=== PATIENT | female | born 1955 | race Caucasian/White ===

== ENCOUNTER 2020-05-30 15:00 | Emergency (ER) | payer OTHER, SELFPAY ==
--- NOTE | ~2020-05-30 | XR_ITS ---
EXAMINATION: XR chest 1V portable EXAM DATE: 05/30/2020 15:40 INDICATION: Altered level of consciousness. TECHNIQUE: Portable AP frontal chest x-ray was obtained. Comparison is made to prior examination from 02/06/2014. FINDINGS: The lungs are clear. There are no pleural effusions. The cardiomediastinal silhouette is within normal limits. There is no pneumothorax suspected. The bones and soft tissues are unremarkab le. There are cholecystectomy clips. IMPRESSION: No acute cardiopulmonary findings. Reviewed, dictated and finalized at location B. NESS MACHINES TEACHER
--- NOTE | ~2020-05-30 | CT_ITS ---
EXAMINATION: CT brain wo con EXAM DATE: 05/30/2020 15:11 INDICATION: STAT Stroke Right Side Facial Droop Post Fall Last Night . TECHNIQUE: Spiral CT of the head was performed without contrast. Axial, coronal and sagittal images were reviewed. The dose-length product (DLP) for this examination was 605.33 mGy-cm. The exposure w as tailored according to patient size, and iterative reconstruction (ASIR) was used as additional dos e reduction technique. There is no prior study for comparison. FINDINGS: There are small left occipital lobe regions of decreased attenuation medially, suspicious f or acute infarctions in the left posterior cerebral artery distribution. Possible smaller right occip ital lobe infarctions. There is small old right frontal lobe infarction. Mild cerebral atrophy and mi croangiopathy. No brain mass, acute intracranial hemorrhage, extra-axial collections or obstructive h ydrocephalus. Mild ethmoid mucoperiosteal thickening. IMPRESSION: 1. Several left occipital hypodensities likely acute infarctions. 2. Possible small right occipital lobe acute infarction. 3. Mild atrophy and microangiopathy. 4. No acute hemorrhage. As per stroke protocol, I called these results to emergency room, discussed with Tiarra Nolen MD at 05/30/2020 15:15 MOLDER BENCH Reviewed, dictated and finalized at location B. ER BENCH IMPRESSION: 1. Several left occipital hypodensities likely acute infarctions. 2. Possible small right occipital lobe acute infarction. 3. Mild atrophy and microangiopathy. 4. No acute hemorrhage. As per stroke protocol, I called these results to emergency room, discussed wit h Tiarra Nolen MD at 05/30/2020 15:15 MOLDER BENCH
[2020-05-30 15:19] VITALS: BP 163/82; PULSE 92; RESP 20; TEMP 36.7; O2SAT 100
--- NOTE | 2020-05-30 15:19 | ECG_ITS ---
Measurements Intervals Pierce Rate: 83 P: 80 MT: 165 QRS: 33 QRSD: 86 T: 69 QT: 390 QTc: 460 Interpretive Statements SINUS RHYTHM DELAYED PRECORDIAL R/S TRANSITION MINIMAL Q WAVES- ANTEROLAT/INF LEADS BORDERLINE ECG Electronically Signed On 05-30-2020 16:38:00 SSIS ETL DEVELOPER by Freddy Cardozo D.O.
[2020-05-30 15:35] LABS: Base Excess ABG -0.1 mmol/L (0-2); Carboxyhemoglobin 1.4 % (0-1.5); HCO3 ABG 21.4 mmol/L (23-29); Methemoglobin ABG 0.3 % (0-1.5); Oxygen Content ABG 20.1 %vol (16.0-22.0); Oxygen Saturation ABG 99.2 % (95-97); Oxyhemoglobin 97.5 % (94-100); PCO2 ABG 26.9 mmHg (35-45); Reduced Hemoglobin 0.8 % (0-1.5); Total Hemoglobin 14.4 g/dL; pH ABG 7.52 (7.35-7.45)
[2020-05-30 15:36] LABS: Basophils Absolute Auto 0.04 K/mm3 (0.00-0.10); Basophils Percent Auto 0.3 % (0.0-1.0); Eosinophils Absolute Auto 0.09 K/mm3 (0.02-0.50); Eosinophils Percent Auto 0.7 % (1.0-6.0); Hematocrit 40.4 % (35.0-49.0); Hemoglobin 13.3 g/dL (12.0-15.0); Immature Granulocyte Absolute 0.04 K/mm3 (0.00-0.00); Immature Granulocyte Percent A 0.3 % (0.0-0.0); Lymphocytes Percent Auto 12.9 % (18.0-42.0); Mean Corpuscular HGB Conc 32.9 g/dL (32.0-36.0); Mean Corpuscular Hemoglobin 29.7 pg (27.0-31.0); Mean Corpuscular Volume 90.2 fL (78.0-102.0); Monocytes Absolute Auto 0.65 K/mm3 (0.10-0.90); Monocytes Percent Auto 4.9 % (2.0-11.0); Neutrophils Absolute Auto 10.6 K/mm3 (1.7-7.2); Neutrophils Percent Auto 80.9 % (50.0-70.0); Platelet Count Result 319 K/mm3 (150-420); Red Blood Count 4.48 M/mm3 (4.20-5.40); Red Cell Distribution Width 13.2 % (11.6-14.4); White Blood Count 13.2 K/mm3 (4.8-10.8)
[2020-05-30 15:37] LABS: Modified Allen's Test Pass; Site Drawn RIGHT RADIAL
[2020-05-30 15:38] LABS: Device ROOM AIR
--- NOTE | 2020-05-30 15:44 | ED.AMS ---
HPI - Altered Mental Status General Chief Complaint: Head Injury Stated Complaint: AMB Source: patient and EMS Mode of arrival: EMS Limitations: altered mental status History of Present Illness HPI narrative: pt reportidly fell down yesterday. today not acting right. pt answering questions, but she is disoriented. states that about 3 am she was moving all over the bed and that is unusual for her. She hasnt been normal since yesterday. complaint: altered mental status Onset (ago): unknown Timing confirmed by: spouse Severity: moderate Context: trauma Associated symptoms: denies other symptoms Related Data Allergies Allergy/AdvReac Type Severity Reaction Status Date / Time cephalexin Allergy Unknown Unknown Verified 05/30/20 17:12 codeine Allergy Unknown NAUSEA Verified 05/30/20 17:12 Review of Systems Review of Systems: Narrative: unreliable due to mental status ROS unobtainable: Yes unobtainable due to medical condition and unobtainable due to mental status PMFSH Family History Family History Sibling Family history of gallbladder disease Father Family history of malignant neoplasm of kidney Patient's father is Other Family history of cardiovascular disease Social History Social History Smoking status: Never smoker Alcohol intake: current Gender identity (if verbalized by the patient): Female Exam Const: General: alert and confusion Nutritional Appearance: thin Limitations: altered mental status HENMT: Head: normal to inspection Other: facial assymetry, however, pt is able to smile and move some of facial muscles Eyes: Conjunctivae: conjunctivae normal Pupils: Equal, round and reactive pupils present Chest: Chest palpation & inspection: normal inspection of the chest Resp: Effort & Inspection: normal respiratory effort Auscultation: clear to auscultation bilaterally Cardio: Rate: regular rate Rhythm: regular rhythm GI: Inspection: non-distended GI Palp: Yes Soft to palpation, No Tenderness to palpation present (GI) and No Guarding due to palpation present (GI) Auscultation: normal bowel sounds : General: Yes no CVA tenderness Back/Spine/Pelvis: Back: no CVA tenderness Skin: General skin exam: normal color Rashes: no rashes Neuro: General: moves all extremities Speech: normal speech and No Abnormal speech present Extrem: General: normal to inspection and edema Psych: Appearance: well kempt Other: unable to answer questions completely- will follow commands, but often answers questions with I dont know. She is confused on details- answers what year is it with 1997 Course Course Emergency Course: mikey notified 1511 Neurology 16:22 Dr Camacho accepted recalled mikey to notify of neurologist acceptance, they will page hospitalist D/w Lani- will accept under Dr. Quinn Vital Signs Vital signs: Vital Signs Temperature 36.7 C 05/30/20 15:19 Pulse Rate 92 05/30/20 15:19 Respiratory Rate 20 05/30/20 15:19 Blood Pressure 163/82 H 05/30/20 15:19 Pulse Oximetry 100 05/30/20 15:19 Temperature 36.7 C 05/30/20 15:19 Pulse Rate 92 05/30/20 15:19 Respiratory Rate 20 05/30/20 15:19 Blood Pressure 163/82 H 05/30/20 15:19 Pulse Oximetry 100 05/30/20 15:19 MDM - Altered Mental Status Lab Data Result diagrams: 05/30/20 15:31 05/30/20 15:31 Labs: Lab Results 05/30/20 05/30/20 05/30/20 Range/Units 15:31 15:31 15:31 WBC 13.2 H (4.8-10.8) K/mm3 RBC 4.48 (4.20-5.40) M/mm3 Hgb 13.3 (12.0-15.0) g/dL Hct 40.4 (35.0-49.0) % MCV 90.2 (78.0-102.0) fL MCH 29.7 (27.0-31.0) pg MCHC 32.9 (32.0-36.0) g/dL RDW 13.2 (11.6-14.4) % Plt Count 319 (150-420) K/mm3 MPV 9.0 L (9.2-11.8) fl Immature Gran % (Auto) 0.3 H (0.0-0.0)
[2020-05-30 15:52] LABS: Partial Thromboplastin Time 23.9 SEC (23.90-30.70); Prothrombin Time 10.9 Seconds (9.50-12.10)
[2020-05-30 15:54] LABS: Add Urine Microscopic? YES; Appearance Urine Clear (Clear); Bilirubin Urine Negative (Negative); Blood Urine Negative (Negative); Color Urine Yellow (Yellow); Glucose Urine UA Negative (Negative); Ketones Urine Trace (Negative); Leukocyte Esterase Ur Negative LEU/UL (Negative); Nitrate Urine Negative (Negative); Protein Urine Negative (Negative); Specific Grav Ur 1.025 (1.010-1.020); Urobilinogen Urine 0.2 mg/dL (0.2-1.0); pH Urine 6.5 (5.0-8.0)
[2020-05-30 15:55] LABS: Alanine Aminotransferase 29 U/L (14-59); Albumin Level 3.9 g/dL (3.4-5.0); Alkaline Phosphatase 104 U/L (46-116); Anion Gap 13 mmol/L (8-16); Aspartate Amino Transferase 12 U/L (15-37); Bilirubin,Total 0.5 mg/dL (0.00-1.00); Blood Urea Nitrogen 16 mg/dL (7-18); Carbon Dioxide 21 mmol/L (21-32); Chloride 104 mmol/L (98-108); Estimated CRCL calculation 41 ml/min; Estimated Glomerular Filt Rate > 60; Glucose 126 mg/dL (70-99); Osmolality Calculated 289 mOsm/kg (285-295); Potassium 3.7 mmol/L (3.5-5.1); Sodium 138 mmol/L (136-145); Total Protein 7.4 g/dL (6.4-8.2); Troponin I 5.7 ng/L (0.00-60.4)
[2020-05-30 16:00] VITALS: BP 138/95; PULSE 88; RESP 20; O2SAT 98
[2020-05-30 16:00] LABS: Bacteria Urine Trace /hpf; RBC Urine 0-2 /hpf (0-2); Squamous Epithelial Cell Urine Rare /hpf (Few); WBC Urine 0-3 /hpf (0-3)
[2020-05-30] MEDS: NALOXONE HCL INJ 2 MG/2 ML AMP (16:03)
[2020-05-30] MEDS: SODIUM CHLORIDE 0.9% IV 1,000 ML 999 ML IV CONT (16:13)
[2020-05-30] MEDS: ONDANSETRON INJ 4 MG/2 ML VIAL IV PUSH (16:13)
[2020-05-30] MEDS: levETIRAcetam 1000MG/NACL100ML 1,000 MG/100 ML BAG 400 MG IVPB (16:15)
[2020-05-30] MEDS: MORPHINE SULFATE (*CRX) 2 MG/ML INJ IV PUSH (16:44)
[2020-05-30 17:00] VITALS: BP 155/121; PULSE 101; RESP 20; O2SAT 98
[2020-05-30 17:30] VITALS: BP 134/88; PULSE 85; RESP 20; O2SAT 98
--- NOTE | 2020-05-30 17:55 | PC.NURSE ---
1512 [facility] CALLED TO SPEAK WITH NEUROLOGIST LEFT MESSAGE HOUSE SUP WAS BUSY 1520 CALLED TO MAKE SURE SHE GOT THE MESSAGE 1559 CALLED AGAIN AND NEURO HAD BEEN REACHED AND WAS CALLING BACK 1618 DR ALANIS NEURO CALLED AND SPOKE WITH DR CELESTIN 1650 HOSPITALIST CALLED AND SPOKE WITH DOCTOR 1710 REPORT GIVEN TO NURSE ALVES AT [facility] 1712 [facility] CALLED FOR TRANSFER 1730 PT LEFT FOR [facility]OM 304
== END 2020-05-30 17:30 | disposition short-term general hospital (02) ==
PROVIDERS: Emergency Provider Emergency Medicine
DX: I63.9 Cerebral infarction, unspecified (principal)
CPT/HCPCS: 36415; 36600; 70450; 71045; 80053; 81001; 82375; 82805; 83050; 84484; 85025; 85610; 85730; 93005; 96361; 96365; 96375; 99285; J1953; J2270; J2310; J2405; J7030

== ENCOUNTER 2020-05-30 20:08 | Inpatient (IN) | payer OTHER, SELFPAY ==
--- NOTE | ~2020-05-30 | MR_ITS ---
EXAMINATION: MR brain/brain stem wo con DATE: 06/02/2020 12:32 INDICATION: Acute cerebrovascular accident. Altered mental status. TECHNIQUE: Magnetic resonance imaging (MRI) of the brain and brainstem was performed without intraven ous contrast. Sequences included sagittal and axial T1-weighted FSE, axial diffusion-weighted FS EPI, axial T2*-weighted GRE, axial T2-weighted FLAIR Propeller, and axial T2-weighted Propeller. Apparent diffusion coefficient (ADC) maps were created. COMPARISON: Head CT 06/02/2020 FINDINGS: There are scattered acute infarcts in the bilateral cerebellum, occipital lobes, parietal l obes, frontal lobes, right temporal lobe, bilateral thalami, and right basal ganglia. There is no int racranial hemorrhage or abnormal mass lesion. There is an old infarct in right frontoparietal region. There are scattered areas of nonspecific increased T2-weighted signal intensity in the cerebral whit e matter and evelyn. The ventricles are normal in size. There is mild mucosal thickening in the ethmoid sinuses. The mastoid air cells are normal. IMPRESSION: 1. Scattered acute infarcts throughout the brain. 2. Old infarct in right frontoparietal region. 3. Mild nonspecific cerebral white matter disease and pontine disease, which likely represents chroni c small vessel ischemic disease. Reviewed, dictated and finalized at location A. SAW MARKER IMPRESSION: 1. Scattered acute infarcts throughout the brain. 2. Old infarct in right frontoparietal region. 3. Mild nonspecific cerebral white matter disease and pontine disease, which lucy das represents chronic small vessel ischemic disease.
--- NOTE | ~2020-05-30 | CT_ITS ---
EXAMINATION: CTA brain carotid EXAM DATE: 06/02/2020 12:19 INDICATION: Encephalopathy, acute stroke. Altered mental status. TECHNIQUE: Noncontrast head CT. Spiral CTA of the carotid arteries was performed with intravenous i njection 100 cc of Omnipaque 350. Axial, coronal, sagittal reformatted images reviewed. Additional r eformatted images created on dedicated 3-D workstation. NASCET comparable standard used to assess th e degree of arterial stenosis. Spiral CT angiogram cerebral arteries performed with the same intrave nous injection of contrast. Source images of the brain CTA transferred to dedicated workstation for 3 -D rotational image creation. Coronal, sagittal maximum intensity pixel images also reviewed. The d ose-length product (DLP) for this examination was 1581.31 mGy-cm. The exposure was tailored accordi ng to patient size, and iterative reconstruction (ASIR) was used as additional dose reduction techniq ue. Comparison is made to prior examination from head CT 05/30/2020. FINDINGS: Small to moderate sized acute to subacute infarctions in the left occipital lobe, and small acute infarction in the right occipital lobe. These were identified on head CT from 05/30/2020, have d ecreased attenuation, expected evolution. Small bilateral thalamic lacunar infarctions not identified on prior study, may be same age as occipital infarctions and just better visualized after a few days . Small old right frontal lobe infarction. There is a bandlike short segment intraluminal density within the left subclavian artery for about 2 cm in length just below the left vertebral artery takeoff, appearance is suspicious for short segment dissection. This has been indicated on axial image 66. Moderate to large amount of noncalcified plaque at the right carotid bulb, with 45 % stenosis. On the left only small amount of plaque, 0% stenosis. The left vertebral artery is slightly larger than the right. There is symmetric cerebral artery arborization, no truncated vessels identified. No venous s inus thrombosis. No aneurysms. Heterogeneously enhancing right thyroid lobe nodule at 3.5 cm, large enough to recommend biopsy. IMPRESSION: 1. 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 No extension into the vertebral artery but potentially some plaque or thrombus from this could have caused the scattered posterior circulation infarcts described above. 2. Expected evolution of previously seen occipital lobe infarctions, and development of thalamic lac unar infarctions. 3. Old small right frontal lobe infarction. 4. Right carotid bulb 45% stenosis, left carotid bulb 0% stenosis. I discussed suspected dissection, infarctions with Dr. Quinn at 06/02/2020 12:49 SENIOR TELLER. Reviewed, dictated and finalized at location B. OR TELLER IMPRESSION: 1. 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 No extension into the vertebral artery but potentia lly some plaque or thrombus from this could have caused the scattered posterior circulation infarcts described above. 2. Expected evolution of previously seen occipital lobe infarctions, and devel opment of thalamic lacunar infarctions. 3. Old small right frontal lobe infarction. 4. Right carotid bulb 45% stenosis, left carotid bulb 0% stenosis. I discussed suspected dissection, infarctions with Dr. Quinn at 06/02/2020 12: 49 SENIOR TELLER.
--- NOTE | 2020-05-30 18:13 | ADMGEN ---
This patient, Rosie Contreras, was admitted to 3 [facility] Surg Room 304-01. Patient/family oriented to hospital policies and general routines including ID bracelet, bed and alarms, visiting hours, pain management, procedures, bathroom and other care routines, personal items, smoking policy, room service/diet, and visiting hours. Information on how to activate the Rapid Response Team has been discussed. Patient/Family are encouraged to report perceived risks to care and to ask questions if they do not understand what they are told or what they should do.
[2020-05-30 18:24] VITALS: BP 137/63; PULSE 82; RESP 18; TEMP 36.9; O2SAT 100
[2020-05-30 18:34] VITALS: BMI 21.6
--- NOTE | 2020-05-30 20:30 | PM.IMHP ---
H&P: HPI History of Present Illness Date/Time: 05/30/20 20:00 Chief Complaint: Cerebrovascular accident. Narrative: This is a 65-year-old female with hypertension, hyperlipidemia, and depression with anxiety who is being directly admitted to the hospitalist service from the emergency department at [facility] for further evaluation of a cerebrovascular accident. At the time my evaluation the patient is confused and it sounds like that was the reason that she was originally seen at the outside facility. Unfortunately she is not able to provide me with an accurate medical history and I have not been able to get a hold of her or son for any further information. As such all of the following is obtained via a review of her electronic medical records. Reportedly the patient had a fall yesterday though was apparently normal thereafter however this morning she was just not acting right. On arrival to the outside hospital she was answering questions but was disoriented. Her was present at that time and he noted that she started to stir around in bed around 03:00 and seemed restless. Aside from a mild leukocytosis her labs were unremarkable. Brain CT did demonstrate several left occipital hypodensities which are likely acute infarctions, a possible small right occipital lobe acute infarction, and mild atrophy and microangiopathy. Dr. Gillespie (neurology) was called and he accepted the patient in consult with request to obtain an MRI in the morning. At the time my evaluation the patient is alert and will open her eyes to name however does not really follow any commands. She did not answer any of my questions and was constantly moving around in bed. Review of Systems Review of Systems: Narrative: Unable to be obtained given her current clinical condition as detailed above. [facility] Past Medical History Medical History (Updated 05/30/20 @ 23:42 by Lani Zeng PA-C) Depression with anxiety Frequent headaches Gastroesophageal reflux disease History of kidney stones Hyperlipidemia Not currently on medication. Hypertension Not currently on medication. Surgical History Surgical History (Updated 05/30/20 @ 23:36 by Lani Zeng PA-C) History of arthroscopy of left knee History of bunionectomy History of cholecystectomy History of dilation and curettage History of tubal ligation Family History Family History Sibling Family history of gallbladder disease Father Family history of malignant neoplasm of kidney Patient's father is Other Family history of cardiovascular disease Social History Social History (Updated 05/30/20 @ 23:37 by Lani Zeng PA-C) Social History: Surrogate decision maker: Kevin () and Jovan (son) Ben. Code status: Full code. Smoking status: Never smoker Second hand tobacco smoke exposure: No Alcohol intake: current Substance use: never Additional living arrangements comments: The patient lives in [place] with her family. Additional occupation/education comments: [employer] with [employer]. Gender identity (if verbalized by the patient): Female Sexual Orientation (if Verbalized by the Patient): Straight or Heterosexual Spiritual care concerns: No Meds Home Medications and Allergies Home Medications Medication Instructions Recorded Confirmed Type vilazodone 40 mg tablet 40 mg PO DAILY #30 tablet 11/15/19 05/30/20 Rx Allergies Allergy/AdvReac Type Severity Reaction Status Date / Time cephalexin Allergy Unknown Unknown Verified 05/30/20 18:43 codeine Allergy Unknown NAUSEA Verified 05/30/20 18:43 Vital Signs Vital Signs - 24 hr 05/30/20 18:24 05/30/20 21:31 Temperature 98.5 F 97.8 F Pulse Rate 82 68 Respiratory Rate 18 18 Blood Pressure 137/63 138/69 Pulse Oximetry 100 100 Exam Narrative: Lillian
[2020-05-30] MEDS: LORazepam INJ (*CRX) 2 MG/ML VIAL 0.5 MG IV PUSH (21:02)
[2020-05-30 21:31] VITALS: BP 138/69; PULSE 68; RESP 18; TEMP 36.6; O2SAT 100
[2020-05-31] VITALS: PULSE 91
--- NOTE | 2020-05-31 | ECHO_ITS ---
Patient Info Name: Rosie Contreras Age: 65 years : 1955 Gender: Female Ht: 60 in Wt: 138 lbs BSA: 1.65 m2 HR: 80 bpm BP: 138 / 69 mmHg Heart Rhythm: Sinus Rhythm Technical Quality: Good Exam Date: 05/31/2020 9:59 AM Exam Location: [facility] Pulmonary Exam Room: 304 Patient Status: Inpatient Admit Date: 05/31/2020 Staff Ordering Physician: Lani Zeng PA-C Shank Tapper: Brigitte Carbajla RDCS Attending Provider: Mitzi Quinn MD Referring Physician: Karri ALEXANDRE; Exam Type: CA echo doppler w bubble study Study Info Indications - CVA Complete two-dimensional, color flow and Doppler transthoracic echocardiogram is performed with agitated saline. Contrast/Agitated Saline Contrast/Ag. Saline: Agitated Saline Amount: 10.00 ml Administered By: Robert Martinez RN Existing IV Access: Yes IV Access Condition: patent with no signs of infiltration Summary 1. Left ventricular chamber dimension is normal. 2. Left ventricular systolic function is hyperdynamic, estimated at >70%. 3. There is mildly increased left ventricular wall thickness. 4. Left ventricular septal wall motion is normal. 5. The left ventricular diastolic function is grade I diastolic dysfunction. 6. Intact interatrial septum visualized by agitated saline imaging. 7. There is mild tricuspid valve regurgitation. Left Ventricle Left ventricular chamber dimension is normal. Left ventricular systolic function is hyperdynamic, estimated at >70%. There is mildly increased left ventricular wall thickness. Left ventricular septal wall motion is normal. The left ventricular diastolic function is grade I diastolic dysfunction. Right Ventricle Right ventricular chamber dimension is normal. Right ventricular systolic function is normal. Left Atria Left atrial chamber dimension is normal. Right Atria Right atrial chamber dimension is normal. Atrial Septum Intact interatrial septum visualized by agitated saline imaging. Aortic Valve The aortic valve is trileaflet. There is mild aortic valve sclerosis. There is no aortic valve stenosis. There is trace aortic valve regurgitation. Pulmonic Valve The pulmonic valve is normal. There is no pulmonic valve stenosis. Mitral Valve The mitral valve has normal leaflets. There is no mitral valve stenosis. There is trace mitral valve regurgitation. Tricuspid Valve The tricuspid valve leaflets are normal. There is no significant tricuspid valve stenosis. There is mild tricuspid valve regurgitation. No pulmonary hypertension, estimated pulmonary arterial systolic pressure is 33 mmHg. Pericardium/Pleural The pericardium appears normal. There is no pericardial effusion. Inferior Vena Cava Normal inferior vena cava with >50% collapse upon inspiration consistent with normal right atrial pressure, 5 mmHg. Aorta The aortic root size at the sinus of Valsalva is normal. The prox ascending aorta size is normal. Left Ventricular Outflow Tract Name Value Normal LVOT 2D LVOT Diameter 2.0 cm LVOT Doppler
[2020-05-31 03:01] LABS: Amphetamine Screen Urine Negative (Negative); Barbiturate Screen Urine Negative (Negative); Benzodiazepines Screen Urine Negative (Negative); Cannabinoid Screen Urine Positive (Negative); Cocaine Screen Urine Negative (Negative); Methadone Screen Urine Negative (Negative); Opiate Screen Urine Positive (Negative); Phencyclidine Screen Urine Negative (Negative)
[2020-05-31 04:00] VITALS: PULSE 80
[2020-05-31 05:23] LABS: Hematocrit 38.2 % (37.0-47.0); Hemoglobin 12.7 g/dL (12.0-15.0); Mean Corpuscular HGB Conc 33.2 g/dl (32-36); Mean Corpuscular Hemoglobin 30.3 pg (26-34); Mean Corpuscular Volume 91.2 fl (80-100); Mean Platelet Volume 9.1 fl (7.4-10.4); Platelet Count Result 300 k/mm3 (150-375); Red Blood Count 4.19 M/mm3 (4.2-5.4); Red Cell Distribution Width 13.5 % (11.5-14.5); White Blood Count 11.7 K/mm3 (4.5-10.0)
[2020-05-31 05:42] LABS: Ammonia 17 umol/L (9-30)
[2020-05-31 05:44] LABS: Alanine Aminotransferase 16 U/L (4-35); Albumin Level 4.1 g/dL (3.5-5.1); Alkaline Phosphatase 89 U/L (38-126); Anion Gap 8 mmol/L (8-16); Aspartate Amino Transferase 21 U/L (14-36); Bilirubin,Total 0.6 mg/dL (0.2-1.3); Blood Urea Nitrogen 12 mg/dL (7-17); Calcium 9.5 mg/dL (8.4-10.2); Carbon Dioxide 23 mmol/L (22-30); Chloride 111 mmol/L (98-107); Cholesterol 250 mg/dL (0-200); Estimated CRCL calculation 44 ml/min; Estimated Glomerular Filt Rate > 60; Glucose 99 mg/dL (65-105); HDL Direct 59 mg/dL; Potassium 3.7 mmol/L (3.4-5.0); Sodium 142 mmol/L (137-145); Triglycerides 162 mg/dL (<150)
[2020-05-31 05:54] LABS: LDL Cholesterol Direct 142 mg/dL
[2020-05-31 08:00] VITALS: PULSE 70
[2020-05-31 12:00] VITALS: PULSE 67
--- NOTE | 2020-05-31 13:51 | PC.NURSE ---
Patient belongings including wallet, home medications, and make up were returned to the .
--- NOTE | 2020-05-31 14:20 | PCOTNOTE ---
Attempted OT evaluation, patient unarousable at this time, unable to complete evaluation. will attempt OT evaluation in AM, RN notified.
--- NOTE | 2020-05-31 14:28 | WPDNEUROPN ---
Progress Note: A&P Assessment and Plan (1) Altered mental status: Code(s): R41.82 - Altered mental status, unspecified Status: Acute (2) Acute cerebrovascular accident: Code(s): I63.9 - Cerebral infarction, unspecified Status: Acute Additional Plan encephalopathy with abnormal CT scan of the head will benefit from the MRI of the brain and EEG Review of Systems Review of Systems: All systems reviewed & are unremarkable except as noted in HPI and below Exam Const: General: healthy appearing, in distress and uncomfortable Nutritional Appearance: average body habitus Orientation/consciousness: oriented to person Limitations: behavioral limitations HENMT: Head: normocephalic Ears: hearing grossly normal bilaterally General nose exam: Normal external nose present and No nasal discharge present Face and sinus: normal facial exam Mouth: Yes Normal oral and palatal mucosa present Eyes: General: appearance normal, both eyes and all related structures Alignment and Position: alignment normal Periorbital: periorbital findings normal Eyelids: eyelids normal Conjunctivae: conjunctivae normal Sclera: sclerae normal Cornea: corneas normal Pupils: Equal, round and reactive pupils present EOM: EOMs intact bilaterally Resp: Effort & Inspection: normal respiratory effort Auscultation: clear to auscultation bilaterally Cardio: Rhythm: regular rhythm GI: Auscultation: normal bowel sounds Neuro: General: moves all extremities Cranial nerves: Yes CN's II-XII intact bilaterally Cognition (Neuro): abnormal cognition Speech: Abnormal speech present Motor exam (neuro): Pronator motor function not present and No tremor noted Sensory Exam: normal sensation Deep tendon reflexes (DTR's): Right triceps reflex intensity grade: 1+, Left triceps reflex intensity grade: 1+, Rt Biceps (C5, C6): 1+, Left biceps reflex intensity grade: 1+, Right brachioradialis reflex intensity grade: 1+, Left brachioradialis reflex intensity grade: 1+, Right patellar reflex intensity grade: 1+, Left patellar reflex intensity grade: 1+, Right ankle reflex intensity grade: 1+ and Left ankle reflex intensity grade: 1+ Plantar Reflex Responses: downgoing: bilateral Objective Data Vital Signs Vital Signs: Vital Signs - 24 hr 05/30/20 18:24 05/30/20 21:31 05/31/20 00:00 Temperature 36.9 C 36.6 C Pulse Rate 82 68 91 Respiratory Rate 18 18 Blood Pressure 137/63 138/69 Pulse Oximetry 100 100 05/31/20 04:00 Temperature Pulse Rate 80 Respiratory Rate Blood Pressure Pulse Oximetry Intake/Output Intake/Output: Intake & Output 05/28/20 05/29/20 05/30/20 05/31/20 23:59 23:59 23:59 23:59 Intake Total 0 Output Total 300 Balance -300 Meds/Results Medications: Active Medications Generic Name Dose Route Start Last Admin Trade Name Chriss PRN Reason Stop Dose Admin Acetaminophen 650 mg 05/30/20 20:08 Acetaminophen 325 Mg Tablet PO Q4H PRN Mild Pain (1-3) or Fever Aspirin 325 mg 05/31/20 13:10 Aspirin 325 Mg Tablet PO DAILY@0800 [facility] Atorvastatin Calcium 20 mg 05/31/20 09:00 Atorvastatin 20 Mg Tablet PO DAILY [facility] Labs Labs: Laboratory Results - last 24 hr 05/31/20 05/31/20 05/31/20 01:52 05:11 05:11 WBC 11.7 H RBC 4.19 L Hgb 12.7 Hct 38.2 MCV 91.2 MCH 30.3 MCHC 33.2 RDW 13.5 Plt Count 300 MPV 9.1 Sodium 142 Potassium 3.7 Chloride 111 H Carbon Dioxide 23 Anion Gap 8 BUN 12 Creatinine 0.80 Estim Creat Clear Calc 44 Estimated GFR > 60 Glucose 99 Calcium 9.5 Total Bilirubin 0.6 AST 21 ALT 16 Alkaline Phosphatase 89 Ammonia Total Protein 7.0 Albumin 4.1 Triglycerides 162 H Cholesterol 250 H LDL Cholesterol Direct 142 HDL Direct 59 Vitamin B12 535.0 TSH (Reflex) Urine Opiates Screen Positive A Urine Methadone Screen Negative Ur Barbit
--- NOTE | 2020-05-31 14:36 | PM.IMPN ---
Progress Note: A&P Assessment and Plan (1) Acute cerebrovascular accident: Code(s): I63.9 - Cerebral infarction, unspecified Status: Acute Assessment and Plan: CT brain from [facility] shows several left occipital hypodensities likely acute infarctions, possible small right occipital lobe acute infarction without acute hemorrhage. Patient transferred here for neurology consult. Appreciate further recommendations from neurology. Started full-dose aspirin and statin therapy however patient is not able to cooperate to take oral medications today. (2) Altered mental status: Code(s): R41.82 - Altered mental status, unspecified Status: Acute Assessment and Plan: Suspect may be related to above. Per nursing, patient received Narcan at outside facility. UDS positive for opioids and cannabis. Ammonia within normal limits. UA grossly unremarkable. Chest XR is clear. Afebrile. At times she is sleeping and difficult to wake, at other times today she is quite alert, forming few-word phrases with clear speech and restless/trying to get out of bed/agitated. (3) Hypertension: Code(s): I10 - Essential (primary) hypertension Status: Chronic Assessment and Plan: History of HTN is documented. Not on home medications. at bedside unsure what medications she takes although I see bystolic prescribed by PCP 12/2019 in external med rec. BPs elevated on arrival but we will allow for permissive hypertension. BPs stable today, will monitor closely. (4) Hyperlipidemia: Code(s): E78.5 - Hyperlipidemia, unspecified Status: Chronic Assessment and Plan: Start atorvastatin if she will take. Total chol 250 with elevated triglycerides. Subjective Date/time seen: 05/31/20 1315 Interval history: Ms. Contreras is a 65yo F admitted for altered mental status and acute CVA. Patient will not wake for my encounter however has been intermittently awake, fidgeting, restless in bed, getting agitated with staff per nursing. Review of systems is unobtainable. Review of Systems Review of Systems: ROS unobtainable: Yes unobtainable due to mental status Exam Narrative: Exam Narrative: General: Female resting asleep in bed on her left side, not able to arouse or wake her on my encounter however before and after my encounter she will wake for other staff and intermittently become agitated. HEENT: Pupils sluggishly reactive. Sclerae anicteric. Oral mucosa appears moist however she would not open her mouth for exam. Neck: Supple Respiratory: Lung sounds are diminished due to poor effort. Respirations even and nonlabored, tolerating room air. Cardiovascular: Regular rate and rhythm. Gastrointestinal: Abdomen is soft, nontender, and nondistended with positive bowel sounds. Skin: Warm and dry. No rash or lesions on limited exam. Extremities: No cyanosis, clubbing, or edema. Radial and pedal pulses intact. Neurological: Sleeping. Unable to assess orientation as she will not answer my questions however she is answering some questions appropriately for nursing. She did not participate in the rest of the neurologic exam. Objective Data Vital Signs Vital Signs: Vital Signs - 24 hr 05/30/20 18:24 05/30/20 21:31 05/31/20 00:00 Temperature 98.5 F 97.8 F Pulse Rate 82 68 91 Respiratory Rate 18 18 Blood Pressure 137/63 138/69 Pulse Oximetry 100 100 05/31/20 04:00 Temperature Pulse Rate 80 Respiratory Rate Blood Pressure Pulse Oximetry Intake/Output Intake/Output: Intake & Output 05/28/20 05/29/20 05/30/20 05/31/20 23:59 23:59 23:59 23:59 Intake Total 0 Output Total 300 Balance -300 Meds/Results Medications: Active Medications Generic Name Dose Route Start Last Admin Trade
--- NOTE | 2020-05-31 15:46 | PCSTNOTE ---
Please refer to the Bedside Swallow Evaluation in the EMR. Please note, silent aspiration cannot be ruled out at bedside.
[2020-05-31 16:00] VITALS: PULSE 72
--- NOTE | 2020-05-31 17:00 | PC.NURSE ---
Pt refused to take meds, after crushed and put in apple sauce. Pt spit them back at this nurse. at bedside, however not helpful or encouraging to pt in regards to her care. Pt very restless and becomes easily agitated. Pt can be combative at times.
[2020-06-01] MEDS: LORazepam INJ (*CRX) 2 MG/ML VIAL 1 MG IV PUSH ×2 (00:15→12:15)
--- NOTE | 2020-06-01 00:32 | PC.NURSE ---
06/01/20 at 0015-- patient continues to yell and curse at staff, attempting to climb out of bed, tried multiple times to be redirected without success, patient becoming more angry and combative with staff. Patient threw pitcher of ice water on this nurse. Anselmo painter called at this time, new orders received.TDialRNC
--- NOTE | 2020-06-01 00:44 | PC.NURSE ---
06/01/20 at 0020--Ativan 1mg IVP given at this time.TDialRNC
--- NOTE | 2020-06-01 00:55 | PC.NURSE ---
06/01/20 at 2330--patient's called on telephone X 2 left message. Trying to obtain verbal consent for CT scan and request for family to come sit at patients bedside due to patients refusing care and not cooperating with staff, no answer, message left to call 3 med surg nurses station.TDialRNC
--- NOTE | 2020-06-01 05:39 | PC.NURSE ---
06/01/20 at 0325-- lab at bedside to draw labs, patient jerked hand away as satellite tv technician installer trying to draw labs, lab tried x 2, patient yells at staff your done, get out. staff left room at this time. NannetteRFIONA
--- NOTE | 2020-06-01 08:04 | PC.NURSE ---
The patients Kevin was called this morning for CTA consent. No answer, voicemail left. Awaiting call back.
--- NOTE | 2020-06-01 10:10 | PCPTNOTE ---
Attempted to see patient this morning for PT evaluation, patient was adamantly refusing to get out of bed.
--- NOTE | 2020-06-01 10:13 | PCOTNOTE ---
Attempted to see patient this morning for OT evaluation, patient was adamantly refusing to get out of bed. Will follow and attempt at later time
--- NOTE | 2020-06-01 11:34 | PM.IMPN ---
Progress Note: A&P Assessment and Plan (1) Acute cerebrovascular accident: Code(s): I63.9 - Cerebral infarction, unspecified Status: Acute Assessment and Plan: CT brain from [facility] shows several left occipital hypodensities likely acute infarctions, possible small right occipital lobe acute infarction without acute hemorrhage. Patient transferred here for neurology consult. Appreciate further recommendations from neurology. Started full-dose aspirin and statin therapy however patient is not able to cooperate to take oral medications today thus rectal aspirin has been ordered if she is cooperative with such. CTA head/neck ordered. MRI attempted yesterday unable to be obtained due to agitation. Discussed case with Dr Gillespie and it is his preference that she is given Ativan and MRI brain be obtained today. Nursing coordinating with CT and MRI to get both done at the same time after receiving Ativan. (2) Altered mental status: Code(s): R41.82 - Altered mental status, unspecified Status: Acute Assessment and Plan: Suspect may be related to above. Per nursing, patient received Narcan at outside facility but I don't have record of such. UDS positive for opioids and cannabis. Ammonia within normal limits. UA grossly unremarkable. Chest XR is clear. Afebrile. At times she is sleeping and difficult to wake, at other times yesterday she is quite alert, forming few-word phrases with clear speech and restless/trying to get out of bed/agitated. Son notes she had a cyst in her spine that was operated on Summer 2018 at a hospital in [facility]. I discussed this with Dr Gillespie inquiring if we need to obtain imaging of the spine today. It is his preference that we focus on MRI brain first then obtain further imaging later if needed. (3) Hypertension: Code(s): I10 - Essential (primary) hypertension Status: Chronic Assessment and Plan: History of HTN is documented. Not on home medications. Family at bedside unsure what medications she takes although I see bystolic prescribed by PCP 12/2019 in external med rec. BPs elevated on arrival but then normalized; monitor BP today and obtain updated vital signs. (4) Hyperlipidemia: Code(s): E78.5 - Hyperlipidemia, unspecified Status: Chronic Assessment and Plan: Start atorvastatin if she will take. Total chol 250 with elevated triglycerides. Subjective Date/time seen: 06/01/20 11:00 Interval history: Ms. Contreras is a 65yo F admitted for altered mental status and acute CVA. Patient has been mostly resting comfortably so far this morning and has spoken to staff in some intermittent short phrases. Yesterday and overnight she was restless and agitated. Complete review of systems is unobtainable due to mental status. Review of Systems Review of Systems: ROS unobtainable: Yes unobtainable due to mental status Exam Narrative: Exam Narrative: General: Female resting asleep in bed on her left side, will not answer my questions but she has spoken short phrases to other staff this morning. HEENT: Pupils sluggishly reactive. Sclerae anicteric. Oral mucosa dry. Neck: Supple Respiratory: Lung sounds are diminished due to poor effort. Respirations even and nonlabored, tolerating room air. Cardiovascular: Regular rate and rhythm. Gastrointestinal: Abdomen is soft, nontender, and nondistended with positive bowel sounds. Skin: Warm and dry. No rash or lesions on limited exam. Extremities: No cyanosis, clubbing, or edema. Radial and pedal pulses intact. Neurological: Sleeping. Unable to assess orientation as she will not answer my questions however she is speaking some to other staff. She did not participate in the rest of the neurologic exam. Objective Data Shelby
--- NOTE | 2020-06-01 12:03 | PCNEURO ---
EEG was attempted but patient is to confused and uncooperative to have done at this time.
[2020-06-01 13:28] LABS: Basophils Absolute Auto 0.1 K/mm3 (0.0-0.1); Basophils Percent Auto 0.6 % (0.2-1.2); Eosinophils Absolute Auto 0.3 K/mm3 (0-0.3); Eosinophils Percent Auto 3.2 % (0-4.4); Hematocrit 42.6 % (37.0-47.0); Hemoglobin 14.4 g/dL (12.0-15.0); Immature Granulocyte Absolute 0.01 K/mm3 (0.00-0.031); Immature Granulocyte Percent A 0.1 % (0-0.5); Lymphocytes Absolute Auto 2.67 K/mm3 (0.9-3.2); Lymphocytes Percent Auto 28.8 % (18.3-44.2); Mean Corpuscular HGB Conc 33.8 g/dl (32-36); Mean Corpuscular Hemoglobin 30.1 pg (26-34); Mean Corpuscular Volume 89.1 fl (80-100); Mean Platelet Volume 8.9 fl (7.4-10.4); Monocytes Absolute Auto 0.7 K/mm3 (0.1-0.6); Monocytes Percent Auto 7.7 % (2.6-8.5); Neutrophils Absolute Auto 5.5 K/mm3 (1.3-6.7); Neutrophils Percent Auto 59.6 % (45.5-73.1); Platelet Count Result 312 k/mm3 (150-375); Red Blood Count 4.78 M/mm3 (4.2-5.4); Red Cell Distribution Width 13.4 % (11.5-14.5); White Blood Count 9.3 K/mm3 (4.5-10.0)
[2020-06-01 13:37] LABS: Prothrombin Time 13.3 Seconds (11.1-14.7)
--- NOTE | 2020-06-01 13:57 | WPDNEUROPN ---
Progress Note: A&P Assessment and Plan (1) Hypertension: Code(s): I10 - Essential (primary) hypertension Status: Chronic (2) Altered mental status: Code(s): R41.82 - Altered mental status, unspecified Status: Acute Additional Plan considering abnormal CT scan she will definitely benefit from the MRI before any further steps are taken she will not cooperate for the CTA as well given Zyprexa 2.5 mg IM today and then 2nd get the studies scheduled Review of Systems Review of Systems: All systems reviewed & are unremarkable except as noted in HPI and below Exam Const: General: combative, confusion and patient obtunded Nutritional Appearance: thin Orientation/consciousness: confusion Limitations: behavioral limitations HENMT: Head: normocephalic Ears: hearing grossly normal bilaterally General nose exam: Normal external nose present and No nasal discharge present Face and sinus: normal facial exam Mouth: Yes Normal oral and palatal mucosa present Eyes: Alignment and Position: position normal Periorbital: periorbital findings normal Eyelids: eyelids normal Conjunctivae: conjunctivae normal Sclera: sclerae normal Cornea: corneas normal Neck: Neck: full ROM and no lymphadenopathy Resp: Auscultation: clear to auscultation bilaterally Cardio: Rhythm: regular rhythm Skin: General skin exam: no rashes or lesions noted Neuro: General: moves all extremities Speech: Other speech findings present (Neuro) ( uncooperative) Gait exam (Neuro): Unable to assess gait Motor exam (neuro): Abnormal motor strength present Deep tendon reflexes (DTR's): Right triceps reflex intensity grade: 1+, Left triceps reflex intensity grade: 1+, Rt Biceps (C5, C6): 1+, Left biceps reflex intensity grade: 1+, Right brachioradialis reflex intensity grade: 1+, Left brachioradialis reflex intensity grade: 1+, Right patellar reflex intensity grade: 1+, Left patellar reflex intensity grade: 1+, Right ankle reflex intensity grade: 1+ and Left ankle reflex intensity grade: 1+ Plantar Reflex Responses: downgoing: bilateral Psych: Mental Status: other Affect: Irritable affect present Attitude: Avoids eye contact (attititude/behavior) Thought process: Illogical thought process present Insight: Poor insight present (Psych) Judgement: Poor judgement present (Psych) Objective Data Vital Signs Vital Signs: Vital Signs - 24 hr 05/31/20 16:00 Pulse Rate 72 Intake/Output Intake/Output: Intake & Output 05/29/20 05/30/20 05/31/20 06/01/20 23:59 23:59 23:59 23:59 Intake Total 0 Output Total 300 Balance -300 Meds/Results Medications: Active Medications Generic Name Dose Route Start Last Admin Trade Name Sebastianq PRN Reason Stop Dose Admin Acetaminophen 650 mg 05/30/20 20:08 Acetaminophen 325 Mg Tablet PO Q4H PRN Mild Pain (1-3) or Fever Aspirin 325 mg 05/31/20 13:10 06/01/20 08:06 Aspirin 325 Mg Tablet PO Not Given DAILY@0800 [facility] Atorvastatin Calcium 20 mg 05/31/20 09:00 06/01/20 09:45 Atorvastatin 20 Mg Tablet PO Not Given DAILY [facility] Labs Labs: Laboratory Results - last 24 hr 06/01/20 06/01/20 13:22 13:22 WBC 9.3 RBC 4.78 Hgb 14.4 Hct 42.6 MCV 89.1 MCH 30.1 MCHC 33.8 RDW 13.4 Plt Count 312 MPV 8.9 Immature Gran % (Auto) 0.1 Neut % (Auto) 59.6 Lymph % (Auto) 28.8 [place] % (Auto) 7.7 Eos % (Auto) 3.2 Baso % (Auto) 0.6 Lymph # (Auto) 2.67 [place] # (Auto) 0.7 H Eos # (Auto) 0.3 Baso # (Auto) 0.1 Abs Immat Gran (auto) 0.01 Absolute Neuts (auto) 5.5 Absolute Nucleated RBC 0.0 Nucleated RBC % 0.0 PT 13.3 INR 1.0 Quality VTE Prophylaxis VTE prophylaxis: mechanical ordered
[2020-06-01 14:00] VITALS: BP 140/55; PULSE 72; RESP 16; TEMP 36.4; O2SAT 96
--- NOTE | 2020-06-01 14:02 | PCSTNOTE ---
The patient treatment was not able to be completed on 06/01/20 in the afternoon due to being asleep. Sitter reported patient did awaken and attempt Physical Therapy earlier in the day but did not make any attempts to eat. Sitter reported, patient has been asleep most of the day. Will plan to continue treatment per plan of care.
[2020-06-01 16:25] LABS: Alanine Aminotransferase 18 U/L (4-35); Albumin Level 4.3 g/dL (3.5-5.1); Alkaline Phosphatase 96 U/L (38-126); Anion Gap 11 mmol/L (8-16); Aspartate Amino Transferase 23 U/L (14-36); Bilirubin,Total 0.6 mg/dL (0.2-1.3); Blood Urea Nitrogen 18 mg/dL (7-17); CRP 0.7 mg/dL (<1.0); Calcium 10.1 mg/dL (8.4-10.2); Carbon Dioxide 22 mmol/L (22-30); Chloride 110 mmol/L (98-107); Estimated CRCL calculation 44 ml/min; Estimated Glomerular Filt Rate > 60; Glucose 109 mg/dL (65-105); Magnesium 1.7 mg/dL (1.6-2.3); Potassium 3.8 mmol/L (3.4-5.0); Sodium 143 mmol/L (137-145)
[2020-06-01 16:51] LABS: Thyroid Stimulating Hormone Reflex 0.797 uIU/mL (0.465-4.68)
[2020-06-01] MEDS: MAGNESIUM SULF 2 GM/WATER 50ML 2 GM/50 ML BAG IVPB (18:23)
[2020-06-01 20:00] VITALS: O2SAT 96
[2020-06-01] MEDS: OLANZapine 10 MG INJ VIAL 2.5 MG IM (22:27)
--- NOTE | 2020-06-01 23:04 | PC.NURSE ---
06/01/20 at 2230-- patient getting restless, agitated at this time, lead software tester Kandy entered room with this RN, patient demanding to have a male nurse, sitter at bedside. Nurse attempting to ask patient what she needs and patient tells nurses to shut up and get out. Patient becoming more agitated at this time, Zyprexa 2.5 mg given as ordered. Sitter at bedside, call bradley within reach and bed alarm on. TDialRNC
[2020-06-02 05:36] VITALS: BP 133/45; PULSE 93; RESP 18; TEMP 36.5; O2SAT 98
[2020-06-02 06:32] LABS: Anion Gap 10 mmol/L (8-16); Blood Urea Nitrogen 19 mg/dL (7-17); Calcium 9.4 mg/dL (8.4-10.2); Carbon Dioxide 22 mmol/L (22-30); Chloride 108 mmol/L (98-107); Estimated CRCL calculation 40 ml/min; Estimated Glomerular Filt Rate > 60; Glucose 102 mg/dL (65-105); Magnesium 1.8 mg/dL (1.6-2.3); Potassium 3.6 mmol/L (3.4-5.0); Sodium 140 mmol/L (137-145)
[2020-06-02] MEDS: ATORVASTATIN 20 MG TABLET PO (08:57)
--- NOTE | 2020-06-02 12:02 | PCSTNOTE ---
The patient treatment was not able to be completed on 06/02/20 due to being asleep; did not awaken for staff just prior to my arrival as well. Will plan to continue treatment per plan of care. The plan, when able, includes assessing most appropriate diet consistency and assessing speech/language/cognitive skills.
[2020-06-02 14:00] VITALS: BP 106/61; PULSE 95; RESP 18; TEMP 36.4; O2SAT 99
--- NOTE | 2020-06-02 14:01 | PM.TDS ---
Transfer Discharge Sum: Prov Provider Date of admission: 05/31/20 09:48 Primary care physician: UNKNOWN,DOCTOR Admitting clinician: Mitzi Quinn MD Consults: 05/31/20 08:51 Consult to Physician Routine Comment: spoke to dr foss @0900 (,us) Consulting Provider: Scott Foss shake table operator/MD group to consult: neurology Reason for consultation: Acute CVA Has provider been notified: Yes DS: Admitting Diagnosis Admitting Diagnosis Admitting Diagnosis: Cerebrovascular accident DS: Discharge Diagnosis Discharge Diagnosis (1) Acute cerebrovascular accident: Code(s): I63.9 - Cerebral infarction, unspecified Status: Acute Assessment and Plan: CT brain from [facility] shows several left occipital hypodensities likely acute infarctions, possible small right occipital lobe acute infarction without acute hemorrhage. Patient transferred here for neurology consult. Started full-dose aspirin and statin therapy CTA head/neck ordered. MRI attempted Pt was very agitated yesterday needed ZYPREXA to relax and cooperate with testing. As per previous note. 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 This was discussed with neurosurgery team. Some facial droop on admission and confusion and agitation yesterday. pt appears more calm today and cooperative no weakness in arms or legs or her face, describes more general weakness (2) Altered mental status: Code(s): R41.82 - Altered mental status, unspecified Status: Acute Assessment and Plan: Suspect may be related to above. Per nursing, patient received Narcan at outside facility but I don't have record of such. UDS positive for opioids and cannabis. Ammonia within normal limits. UA grossly unremarkable. Chest XR is clear. Afebrile. Pt was agitated and restless yesterday today is more calm after zyprexa. Son notes she had a cyst in her spine that was operated on Summer 2018 at a hospital in [facility]. pt had CT brain, MRI brain, CTA head and neck, EEG. See results for full details. (3) Hypertension: Code(s): I10 - Essential (primary) hypertension Status: Chronic Assessment and Plan: History of HTN is documented. Not on home medications. pt should be on bystolic prescribed by PCP 12/2019 in external med rec. BPs elevated on admission, bp is now 133/45. (4) Hyperlipidemia: Code(s): E78.5 - Hyperlipidemia, unspecified Status: Chronic Assessment and Plan: On atorvastatin Transfer Discharge Sum: Med Medications Active and Home Medications: Home Medications vilazodone 40 mg tablet 40 mg PO DAILY #30 tablet 11/15/19 [Rx Confirmed 05/30/20] Active Medications Acetaminophen (Acetaminophen 325 Mg Tablet) 650 mg PO Q4H PRN PRN Reason: Mild Pain (1-3) or Fever Aspirin (Aspirin 325 Mg Tablet) 325 mg PO DAILY@0800 [facility] Last Admin: 06/01/20 08:06 Dose: Not Given Documented by: Atorvastatin Calcium (Atorvastatin 20 Mg Tablet) 20 mg PO DAILY [facility] Last Admin: 06/02/20 08:57 Dose: 20 mg Documented by: Transfer Discharge Sum: Hosp Hospital Course Hospital course: Ms. Contreras is a 65yo F admitted for altered mental status and acute CVA. Patient has been resting comfortably today after receiving Zyprexa. Yesterday, she was restless and agitated. 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 This was discussed with neurosurgery team. Some facial droop on admission and
[2020-06-02] MEDS: ASPIRIN 325 MG TABLET PO (14:15)
--- NOTE | 2020-06-02 14:54 | WPDNEUROLOGY ---
Neurology EEG Report General Information Date of Study: 06/02/20 TEST eeg DIAGNOSIS Change in the mental status CONDITION OF RECORDING patient is confused and disoriented patient was unable to complete the whole 20 minutes of EEG became agitated and pulled the electrodes of. EEG NUMBER [id number] CLINICAL HISTORY altered mental status EEG DESCRIPTION basic resting occipital frequency consists of large amount of well-organized low to medium voltage 8 to 9 hertz per 2nd alpha admixed with low-voltage 15 to 18 hertz per 2nd beta.. During drowsiness low-voltage beta activity seen diffusely. Hyperventilation not done .photic stimulation not done .non paroxysmal .nonfocal .nonlateralizing. IMPRESSION no significant abnormalities noted
--- NOTE | 2020-06-02 15:25 | WPDNEURORHBP ---
Subjective Date/time seen: 06/02/20 15:25 65 years old admitted to the hospital on transfer from the other institution for the complaints of stroke, evaluation revealed normal x-ray chest abnormal CT scan of the head with sever left occipital hypodensities raising the possibility of acute infarction in addition to the small right occipital lobe infarction as well, head neck CTA documented short-segment left subclavian artery dissection proximal to the vertebral artery origin but no extension into the vertebral artery but potentially small plaque or thrombus chest cause scattered posterior circulation infarction described above therapies moderate-size acute to subacute infarction left occipital lobe is small acute infarct in the right occipital lobe is small bilateral thalamic lacunar infarction and a bandlike short-segment intraluminal density within the left subclavian artery for about 2cm in length just below the left vertebral artery takeoff moderate to large amount of noncalcified plaque at the right carotid bulb with 45% stenosis, brain MRI documenting old infarct in the right frontoparietal region is scattered infarcts throughout the brain Review of Systems Review of Systems: All systems reviewed & are unremarkable except as noted in HPI and below Functional Status Ambulation Ability Ambulation Assistive Devices: Walker, Wheeled Exam Const: General: cooperative, comfortable and no acute distress Nutritional Appearance: average body habitus Orientation/consciousness: patient oriented x3 HENMT: Head: normocephalic Ears: hearing grossly normal bilaterally General nose exam: Normal external nose present Face and sinus: normal facial exam Mouth: Yes Normal oral and palatal mucosa present Throat: posterior oropharynx normal and uvula midline Eyes: General: appearance normal, both eyes and all related structures Alignment and Position: alignment normal Periorbital: periorbital findings normal Eyelids: eyelids normal Conjunctivae: conjunctivae normal Sclera: sclerae normal Cornea: corneas normal Pupils: Equal, round and reactive pupils present EOM: EOMs intact bilaterally Neck: Neck: full ROM Resp: Effort & Inspection: normal respiratory effort and able to speak in complete sentences Cardio: Jugular venous distension: no JVD Palpation: normal PMI Rate: regular rate Rhythm: regular rhythm GI: Auscultation: normal bowel sounds Skin: General skin exam: no rashes or lesions noted Neuro: General: oriented to person, oriented to place, oriented to time, tone normal and moves all extremities Cranial nerves: Yes CN's II-XII intact bilaterally Cognition (Neuro): normal cognition Speech: normal speech Motor exam (neuro): 5/5 motor strength present throughout (decreased), No tremor noted, No asterixis, Motor fasciculations not present and Normal motor muscle tone present throughout Sensory Exam: normal sensation Deep tendon reflexes (DTR's): Right triceps reflex intensity grade: 1+, Left triceps reflex intensity grade: 1+, Rt Biceps (C5, C6): 1+, Left biceps reflex intensity grade: 1+, Right brachioradialis reflex intensity grade: 1+, Left brachioradialis reflex intensity grade: 1+, Right patellar reflex intensity grade: 1+, Left patellar reflex intensity grade: 1+, Right ankle reflex intensity grade: 1+ and Left ankle reflex intensity grade: 1+ Plantar Reflex Responses: upgoing (positive Babinski): bilateral Psych: Appearance: grossly normal Speech and movement: Normal speech and movement present Affect: Labile affect present and Indifferent affect present Attitude: cooperative ( used to be belligerent) Thought process: Normal thought process present Thought content: Yes Normal thought content present Insight: Good insight present (Psych) Judgement: Good judgement present (Psych) Objective Data Vital Signs Vital Signs: Vital Signs - 24 hr 06/01/20 20:00 06/02/20 05:36 Temperature 36.5 C Pulse Rate 93 Respiratory Rate 18 B
--- NOTE | 2020-06-02 19:31 | PC.NURSE ---
Report called and given to nurse Rodriguez at [facility]. All questions answered verbalized by YOGI Rodriguez.
[2020-06-02 22:00] VITALS: BP 114/56; PULSE 110; RESP 18; TEMP 36.8; O2SAT 96
== END 2020-06-02 22:54 | disposition short-term general hospital (02) | DRG 66 ==
PROVIDERS: Physician Assistant; Admitting Provider Family Medicine; Visit Provider Family Medicine
DX: I63.9 Cerebral infarction, unspecified (principal); R41.82 Altered mental status, unspecified; R29.810 Facial weakness; I10 Essential (primary) hypertension; E78.5 Hyperlipidemia, unspecified; F41.8 Other specified anxiety disorders; K21.9 Gastro-esophageal reflux disease without esophagitis; Z90.49 Acquired absence of other specified parts of digestive tract
CPT/HCPCS: 36415; 70496; 70498; 70551; 80048; 80053; 80061; 80307; 82140; 82607; 83735; 84443; 85025; 85027; 85610; 86140; 92610; 93306; 95816; 96374; 96375; 97162; 97165; 97530; A9270; G0378; G0379; J2060; J3475; Q9967

== ENCOUNTER 2020-09-29 14:42 | Emergency (ER) | payer OTHER, SELFPAY ==
--- NOTE | ~2020-09-29 | CT_ITS ---
EXAMINATION: CT abdomen pelvis wo con DATE: 09/29/2020 19:46 INDICATION: Bilateral flank pain TECHNIQUE: Computed tomography (CT) of the abdomen and pelvis was performed without intravenous contr ast. The dose-length product was 163.01 mGy-cm. Automated exposure control and iterative reconstructi on technique were employed. COMPARISON: None. FINDINGS: Lung bases are unremarkable. Heart size normal. Small pericardial effusion. Moderate size h iatal hernia. Status post cholecystectomy. The liver, spleen, pancreas, adrenal glands are unremarkable. There is bilateral renal cortical scarr ing. There is a 1.8 cm hyperdense cyst of the right kidney. There are punctate nonobstructing right r enal stones. There is a 6 mm right UVJ stone. No significant hydronephrosis. The contour of the left kidney posteriorly is irregular. Cannot exclude underlying mass. Recommend correlation with ultrasoun d. Nonobstructive bowel gas pattern. Moderate lumbar spondylosis. IMPRESSION: 1. Right UVJ stone measuring 6 mm. No significant hydronephrosis. 2: Nonobstructing right nephrolithiasis. 3: Possible left renal mass. Recommend correlation with renal ultrasound on a nonemergent basis. 4: Moderate size hiatal hernia. Reviewed, dictated and finalized at location A. IMPRESSION: 1. Right UVJ stone measuring 6 mm. No significant hydronephrosis. 2: Nonobstructing right nephrolithiasis. 3: Possible left renal mass. Recommend correlation with renal ultrasound on a n onemergent basis. 4: Moderate size hiatal hernia.
--- NOTE | ~2020-09-29 | XR_ITS ---
XR abdomen/kub 1V 09/29/2020 20:22 Indication: History of kidney stones. Low back pain. Dysuria. Procedure: KUB Comparison: Comparison to multiple prior studies sequentially, with oldest reviewed study dated 12/22. Findings: Bowel gas pattern is nonobstructive. Kidneys are obscured by bowel content. There are christiano cystectomy clips. There are pelvic phleboliths. There is retrocardiac airspace disease. No acute osse ous abnormality. Impression: 1: Left basilar airspace disease which may represent atelectasis or pneumonia. 2: Nonobstructive bowel gas pattern. Reviewed, dictated and finalized at location A. Impression: 1: Left basilar airspace disease which may represent atelectasis or pneumonia. 2: Nonobstructive bowel gas pattern.
[2020-09-29 15:37] VITALS: BP 152/83; PULSE 111; RESP 18; TEMP 36.7; O2SAT 99
[2020-09-29 16:16] LABS: Add Urine Microscopic? YES; Appearance Urine Cloudy (Clear); Bacteria Urine Trace /hpf; Bilirubin Urine Negative (Negative); Blood Urine 1+ (Negative); Color Urine Yellow (Yellow); Glucose Urine UA Negative (Negative); Ketones Urine Negative (Negative); Leukocyte Esterase Ur 1+ LEU/UL (Negative); Mucus Urine Rare /lpf; Nitrate Urine Negative (Negative); Protein Urine Negative (Negative); RBC Urine 21-50 /hpf (0-2); Specific Grav Ur 1.019 (1.001-1.035); Squamous Epithelial Cell Urine Many /hpf (Few); Urobilinogen Urine Negative mg/dL (<2.0)
[2020-09-29 18:49] VITALS: BP 147/65; PULSE 92; RESP 18; O2SAT 97
--- NOTE | 2020-09-29 19:27 | ED.ABDPAIN ---
HPI - Abdominal Pain General Chief Complaint: Urogenital-Female Stated Complaint: possibe kidney stone Time Seen by Provider: 09/29/20 19:05 Source: RN notes reviewed History of Present Illness HPI narrative: Patient presents to emergency department from home for lower back pain. Patient states she has had lower back pain for approximately the past 1 week. States that this is been associated with hematuria and dysuria. States she does have a history of kidney stones was concerned about a kidney stone versus kidney infection. The patient states she has been on Eliquis since she was diagnosed with a stroke in August she denies any fevers or chills, chest pain shortness of breath abdominal pain does note mild nausea. States she does not take anything for the pain today Related Data Home Medications Medication Instructions Recorded Confirmed apixaban 5 mg tablet 5 mg PO BID 06/14/20 06/23/20 aspirin 81 mg tablet,delayed 81 mg PO DAILY 06/23/20 06/23/20 release atorvastatin 80 mg tablet 80 mg PO DAILY 06/23/20 06/23/20 esomeprazole magnesium [Nexium] 20 mg PO DAILY 09/29/20 Allergies Allergy/AdvReac Type Severity Reaction Status Date / Time cephalexin AdvReac Unknown Nausea Verified 09/29/20 18:51 codeine AdvReac Unknown NAUSEA Verified 09/29/20 18:51 Review of Systems Review of Systems: Narrative: Gen.: Denies fevers or chills ENT: Denies congestion Respiratory: Denies shortness of breath or cough CV: Denies chest pain or palpitations GI: See HPI reports hematuria and dysuria Musculoskeletal: Denies back pain or muscle pain Neuro: Denies numbness, tingling, weakness or focal weakness Skin: Denies rash Except as documented, all other systems reviewed and negative [facility] Past Medical History Medical History Depression with anxiety Frequent headaches Gastroesophageal reflux disease History of kidney stones Hyperlipidemia Not currently on medication. Hypertension Not currently on medication. Surgical History Surgical History History of arthroscopy of left knee History of bunionectomy History of cholecystectomy History of dilation and curettage History of tubal ligation Family History Family History Sibling Family history of gallbladder disease Father Family history of malignant neoplasm of kidney Patient's father is Other Family history of cardiovascular disease Social History Social History Social History: Surrogate decision maker: Kevin () and Jovan (son) Ben. Code status: Full code. Smoking status: Never smoker Second hand tobacco smoke exposure: No Alcohol intake: current Substance use: never Additional living arrangements comments: The patient lives in [place] with her family. 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 Gender identity (if verbalized by the patient): Female Spiritual care concerns: No Exam Narrative: Exam Narrative: APPEARANCE: No acute distress, nontoxic, resting in bed EYES: EOMI HEENT: Normocephalic, atraumatic, OMM RESPIRATORY: No respiratory distress Clear to auscultation bilaterally with no rhonchi wheezing or rales. CARDIOVASCULAR: Regular rate and rhythm without murmurs rubs or gallops. ABDOMINAL: Soft, nontender, nondistended, no rebound or guarding MUSCULOSKELETAl: Moves all extremities. No clubbing, cyanosis or edema. NEURO: Awake and alert. Following commands, speech normal, no focal deficits SKIN:: Warm, dry. No rashes lesions or abrasions PSYCHIATRIC: Normal affect/mood, Course Course Emergency Course: Discussed with Dr. Casillas for urology presentation work-up discussed CT scan results and UA this time feels patient may be discharged started on Le
[2020-09-29] MEDS: SODIUM CHLORIDE 0.9% IV 1,000 ML 999 ML IV CONT (19:30)
[2020-09-29] MEDS: ONDANSETRON INJ 4 MG/2 ML VIAL IV PUSH (19:32)
[2020-09-29 19:35] LABS: Basophils Absolute Auto 0.1 K/mm3 (0.0-0.1); Basophils Percent Auto 0.9 % (0.2-1.2); Eosinophils Absolute Auto 0.5 K/mm3 (0-0.3); Eosinophils Percent Auto 4.5 % (0-4.4); Hematocrit 39.5 % (37.0-47.0); Hemoglobin 12.8 g/dL (12.0-15.0); Immature Granulocyte Absolute 0.02 K/mm3 (0.00-0.031); Immature Granulocyte Percent A 0.2 % (0-0.5); Lymphocytes Absolute Auto 2.91 K/mm3 (0.9-3.2); Lymphocytes Percent Auto 28.3 % (18.3-44.2); Mean Corpuscular HGB Conc 32.4 g/dl (32-36); Mean Corpuscular Hemoglobin 29.4 pg (26-34); Mean Corpuscular Volume 90.8 fl (80-100); Mean Platelet Volume 9.2 fl (7.4-10.4); Monocytes Absolute Auto 0.6 K/mm3 (0.1-0.6); Monocytes Percent Auto 5.9 % (2.6-8.5); Neutrophils Absolute Auto 6.2 K/mm3 (1.3-6.7); Neutrophils Percent Auto 60.2 % (45.5-73.1); Platelet Count Result 387 k/mm3 (150-375); Red Blood Count 4.35 M/mm3 (4.2-5.4); Red Cell Distribution Width 12.8 % (11.5-14.5); White Blood Count 10.3 K/mm3 (4.5-10.0)
[2020-09-29 19:49] LABS: Alanine Aminotransferase 52 U/L (4-35); Albumin Level 4.3 g/dL (3.5-5.1); Alkaline Phosphatase 119 U/L (38-126); Anion Gap 6 mmol/L (8-16); Aspartate Amino Transferase 40 U/L (14-36); Bilirubin,Total 0.7 mg/dL (0.2-1.3); Blood Urea Nitrogen 21 mg/dL (7-17); Calcium 9.7 mg/dL (8.4-10.2); Carbon Dioxide 25 mmol/L (22-30); Chloride 107 mmol/L (98-107); Estimated CRCL calculation 37 ml/min; Estimated Glomerular Filt Rate 56; Glucose 100 mg/dL (65-105); Sodium 138 mmol/L (137-145)
[2020-09-29 20:07] VITALS: BP 135/63; PULSE 80; RESP 16; O2SAT 100
[2020-09-29] MEDS: levoFLOXacin 500 MG TABLET PO (20:44)
[2020-09-29] MEDS: TAMSULOSIN HCL 0.4 MG CAPSULE PO (20:44)
[2020-09-29 21:28] VITALS: BP 136/78; PULSE 96; RESP 18; TEMP 36.6; O2SAT 100
[2020-09-29 22:45] LABS: INR 1.4; Partial Thromboplastin Time 25.7 SECONDS (22.3-36.8); Prothrombin Time 16.6 Seconds (11.1-14.7)
== END 2020-09-29 21:30 | disposition home or self-care (01) ==
PROVIDERS: Emergency Medicine; Emergency Provider Emergency Medicine; PCP Family Medicine
DX: N20.0 Calculus of kidney (principal); K21.9 Gastro-esophageal reflux disease without esophagitis; E78.5 Hyperlipidemia, unspecified; I10 Essential (primary) hypertension; Z87.442 Personal history of urinary calculi; Z79.01 Long term (current) use of anticoagulants; Z79.82 Long term (current) use of aspirin; K44.9 Diaphragmatic hernia without obstruction or gangrene; R91.8 Other nonspecific abnormal finding of lung field
CPT/HCPCS: 36415; 74018; 74176; 80053; 81001; 85025; 85610; 85730; 87086; 87088; 96365; 96375; 99284; A9270; J0131; J2405; J7030

== ENCOUNTER 2021-08-21 16:49 | Outpatient (CLI) | payer MEDICARE, SELFPAY ==
--- NOTE | ~2021-08-21 | XR_ITS ---
XR abdomen/kub 1V 08/21/2021 17:05 Indication: History of kidney stones Procedure: KUB Comparison: CT dated 09/29/2020 and KUB dated 07/19/2008 Findings: Bowel gas pattern is nonobstructive. There are cholecystectomy clips. Lung bases are unrema rkable. There is scoliosis. Kidney stones not appreciated on the current study. Moderate amount of leeann wel content obscures the kidneys. Impression: 1: Nonobstructive bowel gas pattern. Reviewed, dictated and finalized at location A. Impression: 1: Nonobstructive bowel gas pattern.
== END 2021-08-21 16:50 | disposition home or self-care (01) ==
LOC: ANHIMG 16:52
PROVIDERS: PCP Family Medicine; Visit Provider Urology
DX: N20.0 Calculus of kidney (principal)
CPT/HCPCS: 74018

== ENCOUNTER 2022-12-24 13:10 | Outpatient (CLI) | payer MEDICARE, SELFPAY ==
[2022-12-24 13:36] LABS: Basophils Absolute Auto 0.1 K/mm3 (0.0-0.1); Basophils Percent Auto 0.7 % (0.2-1.2); Eosinophils Absolute Auto 0.2 K/mm3 (0-0.3); Eosinophils Percent Auto 1.9 % (0-4.4); Hematocrit 38.4 % (37.0-47.0); Hemoglobin 12.3 g/dL (12.0-15.0); Immature Granulocyte Absolute 0.01 K/mm3 (0.00-0.031); Immature Granulocyte Percent A 0.1 % (0-0.5); Lymphocytes Absolute Auto 2.42 K/mm3 (0.9-3.2); Lymphocytes Percent Auto 27.5 % (18.3-44.2); Mean Corpuscular Hemoglobin 29.1 pg (26-34); Mean Corpuscular Volume 90.8 fl (80-100); Mean Platelet Volume 9.4 fl (7.4-10.4); Monocytes Absolute Auto 0.6 K/mm3 (0.1-0.6); Monocytes Percent Auto 6.6 % (2.6-8.5); Neutrophils Absolute Auto 5.6 K/mm3 (1.3-6.7); Neutrophils Percent Auto 63.2 % (45.5-73.1); Platelet Count Result 379 k/mm3 (150-375); Red Blood Count 4.23 M/mm3 (4.2-5.4); Red Cell Distribution Width 13.1 % (11.5-14.5); White Blood Count 8.8 K/mm3 (4.5-10.0)
[2022-12-24 13:47] LABS: Alanine Aminotransferase 15 U/L (6-35); Albumin Level 4.3 g/dL (3.5-5.1); Alkaline Phosphatase 98 U/L (38-126); Anion Gap 6 mmol/L (8-16); Aspartate Amino Transferase 21 U/L (14-36); Bilirubin,Total 0.6 mg/dL (0.2-1.3); Blood Urea Nitrogen 12 mg/dL (7-17); Calcium 9.3 mg/dL (8.4-10.2); Carbon Dioxide 24 mmol/L (22-30); Chloride 108 mmol/L (98-107); Estimated Glomerular Filt Rate 55; Glucose 105 mg/dL (65-110); Potassium 4.1 mmol/L (3.4-5.0); Sodium 138 mmol/L (137-145)
[2022-12-24 13:51] LABS: INR 1.1
[2022-12-24 13:52] LABS: Partial Thromboplastin Time 26.7 SECONDS (22.3-36.8)
[2022-12-24 14:10] LABS: Iron 73 ug/dL (37-170)
[2022-12-24 14:20] LABS: Percent Iron Saturation 17 % (20-50)
== END 2022-12-24 13:11 | disposition home or self-care (01) ==
PROVIDERS: PCP Family Medicine; Visit Provider Family Medicine
DX: R74.8 Abnormal levels of other serum enzymes (principal); K92.1 Melena; I63.9 Cerebral infarction, unspecified; I10 Essential (primary) hypertension; Z79.01 Long term (current) use of anticoagulants
CPT/HCPCS: 36415; 80053; 83540; 83550; 84443; 85025; 85610; 85730

== ENCOUNTER 2023-01-13 00:05 | Day surgery (SDC) | payer MEDICARE, SELFPAY ==
[2023-01-06 15:56] VITALS: BMI 22.6
[2023-01-13 12:57] VITALS: BP 140/76; PULSE 112; RESP 16; TEMP 36; O2SAT 100
[2023-01-13] MEDS: LACTATED RINGERS 1,000 ML 150 ML IV CONT (13:06)
--- NOTE | 2023-01-13 13:15 | WPDANESEPPF ---
Anes - Initial Pre Proc Eval Procedure: Operation Date: 01/13/23 14:30 Proposed Procedures p Esophagogastroduodenoscopy & Colonoscopy - Adiel Rodriguez MD Date/Time: 01/13/23 13:15 Surgeon: Adiel Rodriguez MD Pre Op Diagnosis: melena, snf current use of anticoagulants Patient Data Age: 67 Gender: F Height: 1.52 m Weight: 48.6 kg Last Vital Signs Temp 96.8 F L 01/13/23 12:57 Pulse 112 H 01/13/23 12:57 Resp 16 01/13/23 12:57 BP 140/76 01/13/23 12:57 Pulse Ox 100 01/13/23 12:57 O2 Del Method Room Air 01/13/23 12:57 Allergies Allergy/AdvReac Type Severity Reaction Status Date / Time cephalexin AdvReac Unknown Nausea Verified 01/13/23 12:55 codeine AdvReac Unknown NAUSEA Verified 01/13/23 12:55 Home Medications Medication Instructions Recorded Confirmed Type apixaban 5 mg tablet (Eliquis) 5 mg PO BID 06/14/20 01/13/23 History esomeprazole magnesium 20 mg 20 mg PO DAILY 09/29/20 01/06/23 History capsule,delayed release (Nexium) Patient hx anesthesia problems: none Family hx anesthesia problems: none Results Review: All pre-operative results and documents have been reviewed as part of the pre-operative evaluation. [facility] Past Medical History Medical History (Updated 12/27/22 @ 08:55 by Sahil Gamino NP) Cerebrovascular accident (CVA) Depression with anxiety Elevated liver enzymes Frequent headaches Gastroesophageal reflux disease History of kidney stones Hyperlipidemia Not currently on medication. Hypertension Not currently on medication. 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) Surgical History Surgical History History of arthroscopy of left knee History of bunionectomy History of cholecystectomy History of dilation and curettage History of tubal ligation Family History Family History (Updated 12/24/22 @ 12:32 by SILVESTRE Mosley) Sibling Family history of gallbladder disease Obesity Father Family history of malignant neoplasm of kidney Patient's father is Mother Hyperlipidemia GERD (gastroesophageal reflux disease) Diabetes mellitus Hypertension Other Family history of cardiovascular disease Social History Social History (Updated 12/24/22 @ 12:33 by SILVESTRE Mosley) Social History: Surrogate decision maker: Kevin () and Jovan (son) Ben. Code status: Full code. Smoking status: Never smoker Second hand tobacco smoke exposure: No Alcohol intake: current Substance use: never Substance use type: does not use and marijuana Other substance usage details: GUMMIES FOR SLEEP Lack of Transportation: No Lack of Food: Never True Current Housing: I Have Housing Concerned About Future Housing: No Difficulty Paying Gas/Electric Bills: No Difficulty Paying for Meds: No Currently Unemployed: No Education: High School Diploma/GED Difficulty w/ Childcare or Family Care: No Living arrangements: with family Additional living arrangements comments: The patient lives in [place] with her family. 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 Gender identity (if verbalized by the patient): Female Sexual Orientation (if Verbalized by the Patient): Straight or Heterosexual Spiritual care concerns: No Anes - Eval Final PreProcedure Day of Procedure 01/13/23 13:15 Patient weight: normal Heart: regular rate and rhythm Lungs: clear to auscultation Airway: Mallampati scale class II Neurological: alert and oriented Last oral intake: >/= 8 hours ASA classification: III Emergent: no Anesthetic plan: proceed Anesthesia type and monitoring: general ETT and standard monitoring Results Review: All pre-operative results and documents have been reviewed as part o
--- NOTE | 2023-01-13 13:38 | PM.HPGS ---
History of Present Illness History of Present Illness Consent: Risks, benefits, and alternatives have been discussed and questions answered. Patient agrees to proceed with procedure. 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 Patient reports she passed dark stools that were coffee-ground like . Patient subsequently referred for colonoscopy an EGD. Current CBC noted to be normal. Patient has a distant history of a CVA for which she is maintained on Eliquis. Previous colonoscopy 2005 revealed hemorrhoids. Patient denies any obvious bleeding at present. No stool Hemoccult on record. Review of Systems Review of Systems: Review of systems noncontributory. [facility] Past Medical History Medical History (Updated 01/13/23 @ 13:41 by Adiel Rodriguez MD) Cerebrovascular accident (CVA) Depression with anxiety Elevated liver enzymes Frequent headaches Gastroesophageal reflux disease History of kidney stones Hyperlipidemia Not currently on medication. Hypertension Not currently on medication. 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) Surgical History Surgical History History of arthroscopy of left knee History of bunionectomy History of cholecystectomy History of dilation and curettage History of tubal ligation Family History Family History (Updated 12/24/22 @ 12:32 by SILVESTRE Mosley) Sibling Family history of gallbladder disease Obesity Father Family history of malignant neoplasm of kidney Patient's father is Mother Hyperlipidemia GERD (gastroesophageal reflux disease) Diabetes mellitus Hypertension Other Family history of cardiovascular disease Social History Social History (Updated 12/24/22 @ 12:33 by Makenna Elliott Bhavana) Social History: Surrogate decision maker: Kevin () and Jovan (son) Ben. Code status: Full code. Smoking status: Never smoker Second hand tobacco smoke exposure: No Alcohol intake: current Substance use: never Substance use type: does not use and marijuana Other substance usage details: GUMMIES FOR SLEEP Lack of Transportation: No Lack of Food: Never True Current Housing: I Have Housing Concerned About Future Housing: No Difficulty Paying Gas/Electric Bills: No Difficulty Paying for Meds: No Currently Unemployed: No Education: High School Diploma/GED Difficulty w/ Childcare or Family Care: No Living arrangements: with family Additional living arrangements comments: The patient lives in [place] with her family. 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 Gender identity (if verbalized by the patient): Female Sexual Orientation (if Verbalized by the Patient): Straight or Heterosexual Spiritual care concerns: No Meds Home Medications and Allergies Home Medications Medication Instructions Recorded Confirmed Type apixaban 5 mg tablet (Eliquis) 5 mg PO BID 06/14/20 01/13/23 History esomeprazole magnesium 20 mg 20 mg PO DAILY 09/29/20 01/06/23 History capsule,delayed release (Nexium) Allergies Allergy/AdvReac Type Severity Reaction Status Date / Time cephalexin AdvReac Unknown Nausea Verified 01/13/23 12:55 codeine AdvReac Unknown NAUSEA Verified 01/13/23 12:55 Vital Signs Vital Signs - 24 hr 01/13/23 12:57 Temperature 96.8 F L Pulse Rate 112 H Respiratory Rate 16 Blood Pressure 140/76 Pulse Oximetry 100 Oxygen Delivery Room Air Exam Narrative: Physical exam reveals patient to be alert. Vital signs stable. HEENT exam is unremarkable. Patient is anicteric. Lungs are clear to auscultation and percussion. Heart is without murmur or ext
[2023-01-13] MEDS: SIMETHICONE ORAL SUSPENSION 20 MG/0.3 ML 30 ML BOTTLE 0.6 ML IRRIGATION (13:54)
--- NOTE | 2023-01-13 13:57 | SUR.OPER ---
EGD START: 1350; END: 1352. COLONOSCOPY START: 1358; END: 1410.
[2023-01-13 14:18] VITALS: BP 105/53; PULSE 88; RESP 27; O2SAT 100
[2023-01-13 14:28] VITALS: BP 105/53; PULSE 88; RESP 27; O2SAT 100
[2023-01-13 14:38] VITALS: BP 126/66; PULSE 85; RESP 24; O2SAT 100
== END 2023-01-13 15:09 | disposition home or self-care (01) ==
PROVIDERS: PCP Family Medicine; Visit Provider Internal Medicine Gastroenterology
PROC: 0DJ08ZZ Inspection of Upper Intestinal Tract, Via Natural or Artificial Opening Endoscopic (ICD-10-PCS; CPT 43235; principal; 2023-01-13 14:30)
DX: R19.4 Change in bowel habit (principal); K57.30 Diverticulosis of large intestine without perforation or abscess without bleeding; K21.9 Gastro-esophageal reflux disease without esophagitis; K64.8 Other hemorrhoids; Z80.0 Family history of malignant neoplasm of digestive organs; Z83.719 Family history of colon polyps, unspecified; Z79.01 Long term (current) use of anticoagulants; Z86.73 Personal history of transient ischemic attack (TIA), and cerebral infarction without residual deficits
CPT/HCPCS: 45378; 43235; J2704; J7120